=== PATIENT | female | born 1980 | race Caucasian/White ===

== ENCOUNTER 2019-06-09 12:59 | Emergency (ER) | payer MEDICAID ==
--- NOTE | 2019-06-09 13:42 | EDM.PDOC ---
<Courtney Eastman - Last Filed: 06/09/19 13:31> ED HPI GENERAL MEDICAL PROBLEM - General Chief Complaint: Cardiovascular Problem Stated Complaint: HEART PALPITATION Time Seen by Provider: 06/09/19 13:03 Source of Information: Reports: Patient History Limitations: Reports: No Limitations - History of Present Illness INITIAL COMMENTS - FREE TEXT/NARRATIVE: Patient is a healthy 38-year-old female who presents to the ED for complaints of heart fluttering/palpitations that has been present for the past two years. The last episode occurred on June 02, 2019. When she first started noticing the palpitations they were occurring about 1-2 times per month but the frequency has progressively increased to the point where she is experiencing the palpitations 3-4 times per month, sometimes more. With the palpitations she will get sharp chest pain that radiates down her left arm. She has experienced shortness of breath with the episodes of fluttering. The palpitations and chest pain typically only last a few minutes. She reports that in the past two years she has had two episodes of palpitations were she passed out for a minute or two. These episodes were unwitnessed. She has not been able to correlate any precipitating factors, "the fluttering comes on out of nowhere and disappears just as quickly." She does not have a history of cardiac or respiratory conditions. She does not have a primary care provider and has never had the heart fluttering evaluated. She denies being on any medications, but recently started taking a handful of vitamins, including Vitamin C, D, E, folic acid, and biotin. She smokes 1/3 PPD for the past 22 years. She reports she only drinks alcohol socially. She admits to smoking marijuana 2-3 times per week to help her relax. She drinks 1 cup of coffee per day, denies drinking soda or energy drinks. She states she feels healthy and lives an active lifestyle. Today she denies chest pain, palpitations, shortness of breath, and recent illnesses. - Related Data Allergies Allergy/AdvReac Type Severity Reaction Status Date / Time Penicillins Allergy Cannot Verified 06/09/19 13:10 Remember Home Meds: Home Meds . 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 Denies: Fever, Chills Respiratory: Reports: Shortness of Breath (Becomes short of breath when the heart palpitations occur.). Denies: Cough Cardiovascular: Reports: Chest Pain (with palpitations that start over left chest and radiates down left arm. Denies chest pain today. ), Palpitations ( occur 3-4 times per month. Denies feeling palpitations since last episode on .). Denies: Edema, Lightheadedness, Syncope GI/Abdominal: Reports: No Symptoms. Denies: Abdominal Pain, Diarrhea, Nausea, Vomiting Musculoskeletal: Reports: No Symptoms. Denies: Neck Pain, Back Pain Skin: Reports: No Symptoms. Denies: Rash Neurological: Reports: No Symptoms. Denies: Dizziness, Headache, Numbness, Syncope, Tingling Psychiatric: Reports: No Symptoms ED EXAM, GENERAL - Physical Exam Exam: See Below Exam Limited By: No Limitations General Appearance: Alert, WD/WN, No Apparent Distress Head: Atraumatic, Normocephalic Neck: Normal Inspection, Supple, Non-Tender, Full Range of Motion Respiratory/Chest: No Respiratory Distress, Lungs Clear, Normal Breath Sounds, No Accessory Muscle Use, Chest Non-Tender Cardiovascular: Normal Peripheral Pulses, Regular Rate, Rhythm, No Edema, No Gallop, No Murmur, No Rub GI/Abdominal: Normal Bowel Sounds, Soft, Non-Tender, No Organomegaly, No Distention, No Mass Back Exam: Normal Inspection, Full Range of Motion, NT Extremities: Normal Inspection, Normal Range of Motion, Non-Tender, Normal Capillary Refill, No Pedal Edema Neurological: Alert, Oriented, CN II-XII Intact, Normal Cognition, Normal Gait, No Motor/Sensory Deficits Psychiatric: Normal Affect, Normal Mood Skin Exam: Warm, Dry, Intact, Normal Color, No Rash Lymphatic: No Adenopathy Course - Vital Signs Last Recorded V/S: Last Vital Signs Temp 98.3 F 06/09/19 13:07 Pulse 83 06/09/19 13:07 Resp 18 06/09/19 13:07 BP 112/79 06/09/19 13:07 Pulse Ox 100 06/09/19 13:07 - Orders/Labs/Meds Orders: Active Orders 24 hr Category Date Time Status EKG Documentation Completion [RC] STAT Care 06/09/19 13:29 Active Holter Monitor 48 Hours [RC] .PRN Care 06/09/19 14:29 Active Labs: Laboratory Tests 06/09/19 06/09/19 06/09/19 Range/Units 13:30 13:30 13:30 WBC 9.67 (3.98-10.04) K/mm3 RBC 4.74 (3.98-5.22) M/mm3 Hgb 14.6 (11.2-15.7) gm/dl Hct 42.6 (34.1-44.9) % MCV 89.9 (79.4-94.8) fl MCH 30.8 (25.6-32.2) pg MCHC 34.3 (32.2-35.5) g/dl RDW Std Deviation 40.9 (36.4-46.3) fL Plt Count 345 (182-369) K/mm3 MPV 10.1 (9.4-12.3) fl Neut % (Auto) 59.3 (34.0-71.1) % Lymph % (Auto) 33.6 (19.3-51.7) % [place] % (Auto) 5.7 (4.7-12.5) % Eos % (Auto) 1.0 (0.7-5.8) Baso % (Auto) 0.2 (0.1-1.2) % Neut # (Auto) 5.73 (1.56-6.13) K/mm3 Lymph # (Auto) 3.25 (1.18-3.74) K/mm3 [place] # (Auto) 0.55 H (0.24-0.36) K/mm3 Eos # (Auto) 0.10 (0.04-0.36) K/mm3 Baso # (Auto) 0.02 (0.01-0.08) K/mm3 Sodium 140 (136-145) mEq/L Potassium 4.1 (3.5-5.1) mEq/L Chloride 104 (98-107) mEq/L Carbon Dioxide 26 (21-32) mEq/L Anion Gap 14.1 (5-15) BUN 15 (7-18) mg/dL Creatinine 0.9 (0.55-1.02) mg/dL Est Cr Clr Drug Dosing 73.19 mL/min Estimated GFR (MDRD) > 60 (>60) mL/min BUN/Creatinine Ratio 16.7 (14-18) Glucose 98 (74-106) mg/dL Calcium 8.9 (8.5-10.1) mg/dL Magnesium (1.8-2.4) mg/dl Total Bilirubin 0.6 (0.2-1.0) mg/dL AST 16 (15-37) U/L ALT 28 (14-59) U/L Alkaline Phosphatase 74 (46-116) U/L Troponin I < 0.017 (0.00-0.056) ng/mL NT-Pro-B Natriuret Pep 25 (0-125) pg/mL Total Protein 7.8 (6.4-8.2) g/dl Albumin 3.8 (3.4-5.0) g/dl Globulin 4.0 gm/dL Albumin/Globulin Ratio 1.0 (1-2) TSH 3rd Generation 1.045 (0.358-3.74) uIU/mL 06/09/19 Range/Units 13:30 WBC (3.98-10.04) K/mm3 RBC (3.98-5.22) M/mm3 Hgb (11.2-15.7) gm/dl Hct (34.1-44.9) % MCV (79.4-94.8) fl MCH (25.6-32.2) pg MCHC (32.2-35.5) g/dl RDW Std Deviation (36.4-46.3) fL Plt Count (182-369) K/mm3 MPV (9.4-12.3) fl Neut % (Auto) (34.0-71.1) % Lymph % (Auto) (19.3-51.7) % [place] % (Auto) (4.7-12.5) % Eos % (Auto) (0.7-5.8) Baso % (Auto) (0.1-1.2) % Neut # (Auto) (1.56-6.13) K/mm3 Lymph # (Auto) (1.18-3.74) K/mm3 [place] # (Auto) (0.24-0.36) K/mm3 Eos # (Auto) (0.04-0.36) K/mm3 Baso # (Auto) (0.01-0.08) K/mm3 Sodium (136-145) mEq/L Potassium (3.5-5.1) mEq/L Chloride (98-107) mEq/L Carbon Dioxide (21-32) mEq/L Anion Gap (5-15) BUN (7-18) mg/dL Creatinine (0.55-1.02) mg/dL Est Cr Clr Drug Dosing mL/min Estimated GFR (MDRD) (>60) mL/min BUN/Creatinine Ratio (14-18) Glucose (74-106) mg/dL Calcium (8.5-10.1) mg/dL Magnesium 2.2 (1.8-2.4) mg/dl Total Bilirubin (0.2-1.0) mg/dL AST (15-37) U/L ALT (14-59) U/L Alkaline Phosphatase (46-116) U/L Troponin I (0.00-0.056) ng/mL NT-Pro-B Natriuret Pep (0-125) pg/mL Total Protein (6.4-8.2) g/dl Albumin (3.4-5.0) g/dl Globulin gm/dL Albumin/Globulin Ratio (1-2) TSH 3rd Generation (0.358-3.74) uIU/mL Departure - Departure Disposition: Home, Self-Care 01 Clinical Impression: Palpitations Instructions: Palpitations Referrals: PCP,None [Primary Care Provider] - Forms: ED Department Discharge Additional Instructions: You were seen in the emergency department today for intermittent palpitations. Your work-up included an EKG of your heart, blood work, and a chest x-ray. Your work-up was found to all be normal at this time. You have been discharged on a 48-hour Holter monitor which will monitor your heart rhythm for the next 48 hours. Return this after the 48 hours has concluded. An appointment has been scheduled for you with Bethel Juarez at 11:45 AM on June 15. The results of your Holter monitor should be available by that time and he should build to review this with you. If you experience any worsening symptoms , please do not hesitate to return to the emergency department. Sepsis Event Note - Evaluation Sepsis Screening Result: No Definite Risk - Focused Exam Vital Signs: Vital Signs Temp Pulse Resp BP Pulse Ox 06/09/19 13:07 98.3 F 83 18 112/79 100 Date Exam was Performed: 06/09/19 Time Exam was Performed: 13:31 - My Orders Last 24 Hours: My Active Orders 06/09/19 13:29 EKG Documentation Completion [RC] STAT 06/09/19 14:29 Holter Monitor 48 Hours [RC] .PRN - Assessment/Plan Last 24 Hours: My Active Orders 06/09/19 13:29 EKG Documentation Completion [RC] STAT 06/09/19 14:29 Holter Monitor 48 Hours [RC] .PRN <Trihs Burgos - Last Filed: 06/09/19 22:57> Course - Re-Assessments/Exams Free Text/Narrative Re-Assessment/Exam: I have examined the patient and agree with the HPI, ROS, and physical exam as documented by [employer] student. 06/09/19 14:30 Patient's work-up was grossly unremarkable. We will discharge her home with a 48-hour Holter monitor and instructions to follow-up with a primary care provider to discuss the results of this test. Discharge instructions as documented. Departure - Departure Time of Disposition: 14:41 Condition: Good Sepsis Event Note - Focused Exam Date Exam was Performed: 06/09/19 Time Exam was Performed: 22:57
--- NOTE | 2019-06-09 15:08 | CR ---
Chest: Two views of the chest were obtained. Comparison: No prior chest x-ray. Heart size and mediastinum are normal. Lungs are clear but hyperinflated. Bony structures are unremarkable. Impression: 1. Hyperinflated lungs. Please correlate if this is due to emphysematous change from smoking. 2. Nothing acute is otherwise seen on two-view chest x-ray. Diagnostic code #3 This report was dictated in [place] Standard Time
== END 2019-06-09 15:05 | disposition home or self-care (01) ==
LOC: JD.ED 12:59
DX: R00.2 Palpitations (principal); F17.210 Nicotine dependence, cigarettes, uncomplicated
CPT/HCPCS: 36415; 71046; 71046-26; 80053; 83735; 83880; 84443; 84484; 85025; 93005; 93010; 93225; 93226; 99284; 99285-25

== ENCOUNTER 2019-07-07 20:08 | Emergency (ER) | payer MEDICAID ==
--- NOTE | 2019-07-07 20:38 | EDM.PDOC ---
ED HPI GENERAL MEDICAL PROBLEM - General Chief Complaint: Genitourinary Problem Stated Complaint: POSSIBLE MISCARRIAGE Time Seen by Provider: 07/07/19 20:27 Source of Information: Reports: Patient, Significant Other (Boyfriend) History Limitations: Reports: Uncooperative (The patient did not want to answer questions, stating that she already told the nurse) - History of Present Illness INITIAL COMMENTS - FREE TEXT/NARRATIVE: Ms. Beltran is a 39-year-old woman with no chronic medical problems, , status post a bilateral tubal ligation, with LMP in late May, who now presents to the ED concerned that she may be suffering a miscarriage, since she developed vaginal bleeding with cramps on 07/05/2019. She states that she is passing clots and going through 2-3 pads per hour. She states that she Googled what a miscarriage might look like, and believes that what she is passing looks like that, therefore she is convinced that she is suffering a miscarriage, however, she has not checked a home test. She denies dysuria or urinary frequency. No recent fever or chills. No recent constipation or diarrhea. No recent cough, dyspnea, chest pain, palpitations, recent weight gain or weight loss, recent bloody bowel movements or black bowel movements, recent joint aches, headaches, or rashes. Here in the ED, the patient is found to be hemodynamically stable, afebrile, saturating 100%. She is quite agitated, standing at the bedside and constantly moving during my entire interview, and even moving around on the gurney during my exam. She did not want to answer questions, saying that she was in pain and wanted something for it. The patient does not have a PCP or Assistant Corporate Controller. She did not receive an influenza vaccine this season, and declined an offer to receive one here today. Abdomen Pain Score (Numeric/FACES): 10 - Related Data Allergies Allergy/AdvReac Type Severity Reaction Status Date / Time Penicillins Allergy Cannot Verified 07/07/19 20:20 Remember Home Meds: Home Meds . 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) : 4 Para: 3 - Past Surgical History HEENT Surgical History: Reports: Oral Surgery (wisdom teeth extraction) Female Surgical History: Reports: Tubal Ligation Social & Family History - Tobacco Use Smoking Status *Q: Current Every Day Smoker Years of Tobacco use: 23 Packs/Tins Daily: 0.5 - Caffeine Use Caffeine Use: Reports: Coffee - Alcohol Use Alcohol Use History: Yes Alcohol Use Frequency: Socially - Recreational Drug Use Recreational Drug Use: Yes Drug Use in Last 12 Months: Yes Recreational Drug Type: Reports: Marijuana/Hashish (smokes 2 - 3 times a week) - Living Situation & Occupation Living situation: Reports: , with Significant Other (Boyfriend) Occupation: Unemployed ED ROS GENERAL - Review of Systems Review Of Systems: Comprehensive ROS is negative, except as noted in HPI. ED EXAM, RENAL/ - Physical Exam Exam: See Below Exam Limited By: No Limitations General Appearance: Alert, Thin, Other (Mentally and physically agitated - stood entire interview and was constantly moving) Eye Exam: Bilateral Eye: EOMI, Normal Inspection Ears: Normal External Exam, Hearing Grossly Normal Nose: Normal Inspection Throat/Mouth: Normal Inspection, Normal Lips, Normal Voice, No Airway Compromise Head: Atraumatic, Normocephalic, Other (scratches on left side of face) Neck: Normal Inspection, Full Range of Motion Respiratory/Chest: No Respiratory Distress, Lungs Clear, Normal Breath Sounds, No Accessory Muscle Use Cardiovascular: Normal Peripheral Pulses, Regular Rate, Rhythm, No Edema, No Gallop, No JVD, No Murmur, No Rub GI/Abdominal: Normal Bowel Sounds, Soft, Non-Tender (including lower abdomen and suprapubic regions), No Organomegaly, No Distention, No Abnormal Bruit, No Mass (Female) Exam: Deferred Rectal (Female) Exam: Deferred Back Exam: Normal Inspection, Full Range of Motion. No: CVA Tenderness (L), CVA Tenderness (R) Extremities: Normal Inspection, Normal Range of Motion, No Pedal Edema, Normal Capillary Refill Neurological: Alert, Oriented, Normal Cognition, No Motor/Sensory Deficits Psychiatric: Other (Agitated) Skin Exam: Warm, Dry, Intact, Normal Color, No Rash Course - Vital Signs Last Recorded V/S: Last Vital Signs Temp 36.9 C 07/07/19 20:16 Pulse 92 07/07/19 20:16 Resp 18 07/07/19 20:16 BP 129/100 H 07/07/19 20:16 Pulse Ox 100 07/07/19 20:16 - Orders/Labs/Meds Labs: Laboratory Tests 07/07/19 07/07/19 07/07/19 Range/Units 20:40 20:40 20:40 Urine Color Dark yellow (Yellow) Urine Appearance Clear (Clear) Urine pH 6.0 (5.0-8.0) Ur Specific [place] > or = 1.030 (1.005-1.030) Urine Protein Negative (Negative) Urine Glucose (UA) Negative (Negative) Urine Ketones Negative (Negative) Urine Occult Blood 1+ H (Negative) Urine Nitrite Negative (Negative) Urine Bilirubin 1+ H (Negative) Urine Urobilinogen 0.2 (0.2-1.0) Ur Leukocyte Esterase Trace H (Negative) Urine RBC 0-5 (0-5) /hpf Urine WBC 0-5 (0-5) /hpf Ur Squamous Epith Cells 0-5 (0-5) /hpf Urine Bacteria Few (FEW) /hpf Urine Mucus Moderate H (FEW) /hpf Urine HCG, Qual Negative (NEGATIVE) Urine Opiates Screen Negative (CFWZLR=079) Ur Buprenorphine Scrn Negative (CUTOFF=10) Ur Oxycodone Screen Negative (ZHJ9JH=639) Urine Methadone Screen Negative (ISOKNX=672) Ur Propoxyphene Screen Negative (FERTBO=289) Ur Barbiturates Screen Negative (RAQEYJ=309) Ur Tricyclics Screen Negative (PSVRXA=306) Ur Phencyclidine Scrn Negative (CUTOFF=25) Ur Amphetamine Screen Presumptive positive H (OBYNSS=946) U Methamphetamines Scrn Presumptive positive H (ALKUDA=869) U Benzodiazepines Scrn Negative (XCBGGJ=539) U Cocaine Metab Screen Negative (OMNKZT=664) U Marijuana (THC) Screen Presumptive positive H (CUTOFF=50) - Re-Assessments/Exams Free Text/Narrative Re-Assessment/Exam: 07/07/19 20:36 As above, the patient is concerned that she is suffering a miscarriage, despite having undergone a bilateral tubal ligation years ago, because she Googled what a miscarriage looks like. She did not check a urine test to see if she is . For today's purposes, I have ordered a urine test, as well as a urinalysis, which will need to be obtained by quick catheter since she has vaginal bleeding, to rule out a UTI. Because the patient is acting quite bizarrely, not consistent with either a miscarriage or a menstrual period , I have also added a urine drug screen. If the patient's urine test returns positive, I will need to perform a pelvic exam to look at her cervix, however, if her urine test returns negative, that will not be necessary. 07/07/19 21:35 The patient's urinalysis is remarkable for 1+ occult blood with 0-5 RBCs, trace leukocyte esterase with 0-5 WBCs, nitrate negative with few bacteria, and 0-5 squamous epithelial cells. Her urine test is negative. Her urine drug screen is positive for methamphetamine/amphetamine, and marijuana. 07/07/19 21:38 Test results discussed with the patient and her boyfriend. I notified the patient of the methamphetamine in her urine. The patient stated that she did not use methamphetamine, but tried to tell me that her urine drug screen is positive because she is around it. I recommended that she seek professional counseling in that regard. The patient will be discharged home. Departure - Departure Time of Disposition: 21:39 Disposition: Home, Self-Care 01 Condition: Good Clinical Impression: Methamphetamine abuse, Marijuana use, Heavy menstrual period - Discharge Information *PRESCRIPTION DRUG MONITORING PROGRAM REVIEWED*: Not Applicable *COPY OF PRESCRIPTION DRUG MONITORING REPORT IN PATIENT [place]: Not Applicable Referrals: PCP,None [Primary Care Provider] - Forms: ED Department Discharge Additional Instructions: You were seen in the emergency room for 2 days of heavy vaginal bleeding, including passing clots, with cramps. Work-up in the ER included a urinalysis, a urine test, and a urine drug screen. Your urinalysis and urine test were negative. You do not have a urinary tract infection, and you are not . Your urine drug screen returned positive for both marijuana and methamphetamine. We are very concerned about your use of methamphetamine. We recommend that you seek professional help to stop using it. Please go to [facility]: [address] [phone] If any other problems, please do not hesitate to return to the ER. Sepsis Event Note - Evaluation Sepsis Screening Result: No Definite Risk - Focused Exam Vital Signs: Vital Signs Temp Pulse Resp BP Pulse Ox 07/07/19 20:16 36.9 C 92 18 129/100 H 100 Date Exam was Performed: 07/07/19 Time Exam was Performed: 21:57
== END 2019-07-07 21:45 | disposition home or self-care (01) ==
LOC: JD.ED 20:08
DX: N92.0 Excessive and frequent menstruation with regular cycle (principal); F15.10 Other stimulant abuse, uncomplicated; F12.90 Cannabis use, unspecified, uncomplicated; R45.1 Restlessness and agitation; F17.210 Nicotine dependence, cigarettes, uncomplicated; Z88.0 Allergy status to penicillin
CPT/HCPCS: 80306; 81001; 81025; 99283; 99284

== ENCOUNTER 2022-07-19 05:47 | Emergency (ER) | payer MEDICAID | END 2022-07-19 12:33 | disposition home or self-care (01) | LOC: JD.ED 05:47 | DX: F15.10 Other stimulant abuse, uncomplicated (principal); F10.920 Alcohol use, unspecified with intoxication, uncomplicated; F12.90 Cannabis use, unspecified, uncomplicated; Z88.0 Allergy status to penicillin; Y90.0 Blood alcohol level of less than 20 mg/100 ml | CPT/HCPCS: 36415; 80053; 80306; 80307; 85025; 99283 ==